=== PATIENT | female | born 1980 | race Caucasian/White ===

== ENCOUNTER 2018-04-26 18:28 | Emergency (ER) | payer BC ==
[~2018-04-26] VITALS: Ht 170.2 cm; Wt 131.5 kg
[~2018-04-26 18:28] MED LIST: BAY PO; FLEXERIL10 MG PO; ZOC20 PO
[2018-04-26 18:38] VITALS: Ht 170.2 cm; Wt 131.5 kg
[2018-04-26 19:32] LABS: UA SPECIFIC GRAVITY >=1.030 (1.005-1.035); microscopic required? YES; urine erythrocyte 3+ (NEGATIVE)
[2018-04-26 19:40] LABS: BASOPHIL % 0.8 % (0-2); PLATELET COUNT 270 x10^3mcL (130-400); RED CELL DISTRIBUTION WIDTH 14.5 % (11.5-14.5)
[2018-04-26 19:56] LABS: AMPHETAMINE QUAL UR NONE DETECTED (See below)
[2018-04-26 20:32] LABS: CALCIUM 9.1 mg/dL (8.5-10.1); CARBON DIOXIDE 26.7 mmol/L (21-32); CHLORIDE SERUM 102 mmol/L (98-107); CREATININE SERUM 0.7 mg/dL (0.6-1.0); GFR1 > 60 mL/min; GLUCOSE SERUM 158 mg/dL (74-106); POTASSIUM SERUM 3.7 mmol/L (3.5-5.1); SODIUM SERUM 138 mmol/L (136-145)
[2018-04-26 20:37] LABS: ALKALINE PHOSPHATASE 77 U/L (46-116); ALT/SGPT 29 U/L (14-59); AST/SGOT 19 U/L (15-37); BILIRUBIN TOTAL 0.1 mg/dL (0.20-1.00); TOTAL PROTEIN, SERUM 7.5 g/dL (6.4-8.2)
[2018-04-26 21:10] LABS: ALBUMIN 3.3 g/dL (3.4-5.0)
[2018-04-26 21:57] VITALS: BP 112/78
== END 2018-04-26 21:57 | disposition home or self-care (01) ==
LOC: ED 18:28
PROVIDERS: Emergency Medicine
DX: G40.909 Epilepsy, unspecified, not intractable, without status epilepticus (principal); E11.9 Type 2 diabetes mellitus without complications; Z90.49 Acquired absence of other specified parts of digestive tract; Z91.040 Latex allergy status
CPT/HCPCS: 82962; J1885; J2060

== ENCOUNTER 2018-04-30 16:38 | Emergency (ER) | payer BC ==
[~2018-04-30] VITALS: Ht 172.7 cm; Wt 132.9 kg
[2018-04-30 16:43] VITALS: Ht 172.7 cm; Wt 132.9 kg
[2018-04-30 17:19] LABS: BASOPHIL % 0.4 % (0-2); PLATELET COUNT 266 x10^3mcL (130-400)
[2018-04-30 17:23] LABS: RED CELL DISTRIBUTION WIDTH 16.1 % (11.5-14.5)
[2018-04-30 17:27] LABS: CALCIUM 8.7 mg/dL (8.5-10.1); CARBON DIOXIDE 27.1 mmol/L (21-32); CHLORIDE SERUM 101 mmol/L (98-107); CREATININE SERUM 0.7 mg/dL (0.6-1.0); GFR1 > 60 mL/min; GLUCOSE SERUM 205 mg/dL (74-106); POTASSIUM SERUM 3.8 mmol/L (3.5-5.1); SODIUM SERUM 137 mmol/L (136-145)
[2018-04-30 19:25] VITALS: BP 127/80
== END 2018-04-30 19:25 | disposition home or self-care (01) ==
LOC: ED 16:38
PROVIDERS: Emergency Medicine
DX: G40.802 Other epilepsy, not intractable, without status epilepticus (principal); K60.2 Anal fissure, unspecified; E11.9 Type 2 diabetes mellitus without complications; Z90.49 Acquired absence of other specified parts of digestive tract; Z91.040 Latex allergy status; Z98.890 Other specified postprocedural states
CPT/HCPCS: J1165; J2060; J3490; J7030; J7050